=== PATIENT | male | born 1980 | race African-American/Black ===

== ENCOUNTER → 2020-04-28 | Outpatient (CLI) | payer OTHER ==
[~2020-04-28] MED LIST: CEPH500 PO; FAMO20 PO; HYDACE25S PR; HYDACE5325 PO; NAPR500 PO; NAPR550 PO; OXYACE5T PO; OXYACE7.5T PO; RXHYD5325 PO; TRAM50 PO; Ultram50 MG PO
== END | disposition home or self-care (01) ==
LOC: PLD 14:26 → LAB SHORT 14:26
DX: D23.0 Other benign neoplasm of skin of lip (principal)
CPT/HCPCS: 88305

== ENCOUNTER → 2020-05-05 | Outpatient (CLI) | payer OTHER | LOC: LAB SHORT 14:39 → LAB 14:39 | DX: T81.89XA Other complications of procedures, not elsewhere classified, initial encounter (principal) | CPT/HCPCS: 87070; 87075; 87205 ==